=== PATIENT | male | born 1955 | race Caucasian/White ===

== ENCOUNTER → 2018-09-12 | Outpatient (CLI) | payer BC ==
[~2018-09-12] MED LIST: ASPIRIN EC325 M1 PO; CALCIUM 600 WI1 EACH PO; CILOSTAZOL 100100 MG PO; COMBIVIR PO; COMBIVIR TABLE1 EACH PO; FOSAMAX 70 MG T70 MG PO; GEMFIBROZIL 60600 MG PO; PLAVIX 75 MG TA75 M1 PO; PLAVIX 75 MG TA75 MG PO; PRAVACHOL20 MG PO; PRAVASTATIN SOD40 MG PO; VIRACEPT625 MG PO; VITAMIN D10000 UNIT PO
== END ==
LOC: NUC 08-29 11:15
DX: M81.0 Age-related osteoporosis without current pathological fracture (principal)

== ENCOUNTER → 2019-08-09 | Outpatient (CLI) | payer BC | LOC: SJCVCIMAG 09:08 | DX: I70.203 Unspecified atherosclerosis of native arteries of extremities, bilateral legs (principal); I70.1 Atherosclerosis of renal artery; I10 Essential (primary) hypertension; E78.00 Pure hypercholesterolemia, unspecified; B20 Human immunodeficiency virus [HIV] disease; J43.9 Emphysema, unspecified; M85.80 Other specified disorders of bone density and structure, unspecified site; E78.2 Mixed hyperlipidemia; Z82.49 Family history of ischemic heart disease and other diseases of the circulatory system; Z87.891 Personal history of nicotine dependence; Z95.820 Peripheral vascular angioplasty status with implants and grafts; Z79.899 Other long term (current) drug therapy ==

== ENCOUNTER → 2019-09-07 | Outpatient (CLI) | payer BC, OTHER ==
[~2019-09-07] MED LIST changes: +BENICAR40 MG PO; +CRESTOR20 MG PO; +GENVOYA TABLET1 EACH PO
== END ==
LOC: SJCVCIMAG 09:23 → SJCVC 09:31 → SJCVCIMAG 13:42
PROVIDERS: ATTEND Internal Medicine
DX: R94.31 Abnormal electrocardiogram [ECG] [EKG] (principal); I65.23 Occlusion and stenosis of bilateral carotid arteries; E78.5 Hyperlipidemia, unspecified; I10 Essential (primary) hypertension; I73.9 Peripheral vascular disease, unspecified; B20 Human immunodeficiency virus [HIV] disease; J43.9 Emphysema, unspecified; E74.39 Other disorders of intestinal carbohydrate absorption; F17.200 Nicotine dependence, unspecified, uncomplicated

== ENCOUNTER 2019-09-12 06:53 | Inpatient (IN) | payer OTHER ==
[~2019-09-12] VITALS: Ht 177.8 cm; Wt 77.6 kg
[2019-09-12] VITALS (9 sets, daily range): BP systolic 104–137; BP diastolic 58–77
[~2019-09-12 06:53] MED LIST changes: -BENICAR40 MG PO; -CRESTOR20 MG PO; -GENVOYA TABLET1 EACH PO
[2019-09-12 07:38] LABS: HEMATOCRIT 38.6 % (42.0-52.0); HEMOGLOBIN 13.3 gm/dL (14.0-18.0); MCH 34.5 pg (26.0-34.0); MCHC 34.4 g/dL (28.0-37.0); MCV 100.3 fL (80.0-100.0); RBC 3.85 mil/uL (4.50-6.00); RDW 14.2 % (10.5-14.5); WBC 6.6 thou/uL (4.0-11.0)
[2019-09-12 07:42] LABS: CALCIUM 8.9 mg/dL (8.5-10.1); CREATININE 1.2 mg/dL (0.7-1.3); POTASSIUM 4.4 mmol/L (3.5-5.1)
[2019-09-12] MEDS ORDERED: CRESTOR20 MG PO (07:46)
[2019-09-12] MEDS ORDERED: GENVOYA TABLET1 EACH PO (07:46)
[2019-09-12] MEDS ORDERED: BENICAR40 MG PO (07:46)
--- NOTE | 2019-09-12 07:51 | EKG ---
[facility] [place] [address] ELECTROCARDIOGRAM REPORT Name: ANDRY BRIDGES Room #: [facility]#: [id number] Admission: 09/12/19 Attend Phys: Zafar Rich MD Discharge: Date of : 51 Report #: [id number] THIS REPORT FOR: cc: Juanpablo Quintana MD, Daniel J. MD Lundgren,Сергей Degroot MD [facility] THIS REPORT FOR: //name// [facility] Test Date: 2019-09-12 Test Time: 07:42:04 Pat Name: ANDRY BRIDGES Department: Room: Gender: [employer] Information Clerk: Karan AYOUB : 1955 Requested By: Сергей Paredes Order Number: [id number] MD: Сергей Paredes Measurements Intervals [place] Rate: 44 P: 4 SC: 174 QRS: 57 QRSD: 94 T: 67 QT: 463 QTc: 396 Interpretive Statements Sinus bradycardia Compared to ECG 05/03/2014 08:05:07 No significant changes Electronically Signed On 09-12-2019 7:50:37 CDT by Сергей Paredes [email or web address] <ELECTRONICALLY SIGNED> By: Сергей Paredes MD, FACC 09/12/19 0750 0742 [id number] Сергей Paredes MD, [facility] /EPI
--- NOTE | 2019-09-12 14:06 | NUR ---
ASSUMED CARE APPROX 0700. PT ARRIVED TO THIS UNIT FROM [facility] @ APPROX 1245. PT ALERT AND ORIENTED X4 AND VSS. RT POST CATH GROIN SITE C/D/I. NO HEMATOMA PRESENT. PEDAL PULSES 2+. PT DENIES ACUTE PAIN. PT ON ROOM AIR AND STABLE. NO SIGNS OF RESPIRATORY DISTRESS NOTED. PT ON BEDREST FOR 6HOURS AND TO BE COMPLETE @1715. PT WILL BE PICKED UP BY DAUGHTER. WILL CONTINUE TO MONITOR UNTIL DISCHARGE.
== END 2019-09-12 17:40 | disposition home or self-care (01) | DRG 253 ==
LOC: CATH 06:53 → 2N 12:59
PROVIDERS: Internal Medicine; ADMIT Nuclear Medicine Nuclear Cardiology; ATTEND Nuclear Medicine Nuclear Cardiology
DX: T82.856A Stenosis of peripheral vascular stent, initial encounter (principal); B20 Human immunodeficiency virus [HIV] disease; Y83.8 Other surgical procedures as the cause of abnormal reaction of the patient, or of later complication, without mention of misadventure at the time of the procedure; Y92.89 Other specified places as the place of occurrence of the external cause; I73.9 Peripheral vascular disease, unspecified; E78.5 Hyperlipidemia, unspecified; I10 Essential (primary) hypertension; I65.23 Occlusion and stenosis of bilateral carotid arteries; J43.9 Emphysema, unspecified; F17.200 Nicotine dependence, unspecified, uncomplicated; E74.39 Other disorders of intestinal carbohydrate absorption; Z90.49 Acquired absence of other specified parts of digestive tract; Z81.8 Family history of other mental and behavioral disorders; Z84.1 Family history of disorders of kidney and ureter; Z82.49 Family history of ischemic heart disease and other diseases of the circulatory system
CPT/HCPCS: 10797

== ENCOUNTER → 2019-10-30 | Outpatient (CLI) | payer OTHER ==
[~2019-10-30] MED LIST changes: +BENICAR40 MG PO; +CRESTOR20 MG PO; +GENVOYA TABLET1 EACH PO
== END ==
LOC: SJCVC 10:59
PROVIDERS: ATTEND Internal Medicine
DX: I73.9 Peripheral vascular disease, unspecified (principal); E78.5 Hyperlipidemia, unspecified; I10 Essential (primary) hypertension; I65.23 Occlusion and stenosis of bilateral carotid arteries; B20 Human immunodeficiency virus [HIV] disease; J43.9 Emphysema, unspecified; E74.39 Other disorders of intestinal carbohydrate absorption; F17.200 Nicotine dependence, unspecified, uncomplicated; Z79.899 Other long term (current) drug therapy

== ENCOUNTER → 2020-01-01 | Outpatient (CLI) | payer OTHER | LOC: SJCVCIMAG 07:42 | PROVIDERS: ATTEND Nuclear Medicine Nuclear Cardiology | DX: I73.9 Peripheral vascular disease, unspecified (principal); N28.1 Cyst of kidney, acquired; I77.1 Stricture of artery; I77.9 Disorder of arteries and arterioles, unspecified; I70.1 Atherosclerosis of renal artery; I10 Essential (primary) hypertension; E78.00 Pure hypercholesterolemia, unspecified; J43.9 Emphysema, unspecified; F17.200 Nicotine dependence, unspecified, uncomplicated; Z79.899 Other long term (current) drug therapy ==

== ENCOUNTER → 2020-05-07 | Outpatient (CLI) | payer OTHER | LOC: SJCVC 12:46 | PROVIDERS: ATTEND Internal Medicine | DX: R00.1 Bradycardia, unspecified (principal); I73.9 Peripheral vascular disease, unspecified; E78.2 Mixed hyperlipidemia; I10 Essential (primary) hypertension; I65.23 Occlusion and stenosis of bilateral carotid arteries; B20 Human immunodeficiency virus [HIV] disease; J43.9 Emphysema, unspecified; E74.39 Other disorders of intestinal carbohydrate absorption; G62.9 Polyneuropathy, unspecified; Z79.82 Long term (current) use of aspirin; Z79.899 Other long term (current) drug therapy; Z87.891 Personal history of nicotine dependence ==

== ENCOUNTER → 2020-07-15 | Outpatient (CLI) | payer OTHER | LOC: SJCVCIMAG 08:47 | PROVIDERS: ATTEND Nuclear Medicine Nuclear Cardiology | DX: I65.23 Occlusion and stenosis of bilateral carotid arteries (principal); I73.9 Peripheral vascular disease, unspecified; M79.604 Pain in right leg; M79.605 Pain in left leg; I77.9 Disorder of arteries and arterioles, unspecified; I70.1 Atherosclerosis of renal artery; I10 Essential (primary) hypertension; B20 Human immunodeficiency virus [HIV] disease; E78.00 Pure hypercholesterolemia, unspecified; F17.200 Nicotine dependence, unspecified, uncomplicated; J43.9 Emphysema, unspecified; G62.9 Polyneuropathy, unspecified; E78.2 Mixed hyperlipidemia; Z95.828 Presence of other vascular implants and grafts; Z90.49 Acquired absence of other specified parts of digestive tract; Z79.82 Long term (current) use of aspirin; Z79.899 Other long term (current) drug therapy; Z98.890 Other specified postprocedural states; Z82.49 Family history of ischemic heart disease and other diseases of the circulatory system ==

== ENCOUNTER → 2021-03-31 | Outpatient (CLI) | payer OTHER | LOC: SJCVCIMAG 09:31 | PROVIDERS: ATTEND Nuclear Medicine Nuclear Cardiology | DX: I65.23 Occlusion and stenosis of bilateral carotid arteries (principal); I73.9 Peripheral vascular disease, unspecified; I77.9 Disorder of arteries and arterioles, unspecified; I70.1 Atherosclerosis of renal artery; B20 Human immunodeficiency virus [HIV] disease; E78.00 Pure hypercholesterolemia, unspecified; J43.9 Emphysema, unspecified; M79.606 Pain in leg, unspecified; I10 Essential (primary) hypertension; E78.2 Mixed hyperlipidemia; Z79.82 Long term (current) use of aspirin; Z79.899 Other long term (current) drug therapy; Z72.89 Other problems related to lifestyle; Z87.891 Personal history of nicotine dependence ==

== ENCOUNTER → 2021-05-07 | Outpatient (CLI) | payer OTHER | LOC: SJCVCIMAG 08:53 | PROVIDERS: ATTEND Internal Medicine | DX: I51.89 Other ill-defined heart diseases (principal); I70.1 Atherosclerosis of renal artery; R00.1 Bradycardia, unspecified; I73.9 Peripheral vascular disease, unspecified; N28.1 Cyst of kidney, acquired; I47.1 Supraventricular tachycardia; E78.5 Hyperlipidemia, unspecified; I65.23 Occlusion and stenosis of bilateral carotid arteries; B20 Human immunodeficiency virus [HIV] disease; J43.9 Emphysema, unspecified; E74.39 Other disorders of intestinal carbohydrate absorption; M81.8 Other osteoporosis without current pathological fracture; Z79.82 Long term (current) use of aspirin; Z79.899 Other long term (current) drug therapy; Z98.890 Other specified postprocedural states ==

== ENCOUNTER → 2021-05-13 | Outpatient (CLI) | payer OTHER | LOC: SJCVC 15:35 | PROVIDERS: ATTEND Internal Medicine Cardiovascular Disease | DX: I47.1 Supraventricular tachycardia (principal); I73.9 Peripheral vascular disease, unspecified; I10 Essential (primary) hypertension; E78.2 Mixed hyperlipidemia; B20 Human immunodeficiency virus [HIV] disease; F17.210 Nicotine dependence, cigarettes, uncomplicated; Z72.89 Other problems related to lifestyle; Z79.82 Long term (current) use of aspirin; Z79.899 Other long term (current) drug therapy ==